=== PATIENT | male | born 1990 | race Caucasian/White ===

== ENCOUNTER 2022-06-27 13:19 | Emergency (ER) | payer BC, SELFPAY ==
--- NOTE | ~2022-06-27 | XR_ITS ---
EXAMINATION: XR CHEST CLINICAL INFORMATION: Chest pain. COMPARISON: None available. TECHNIQUE: Frontal view of the chest was obtained. FINDINGS: No significant abnormality is noted involving the heart, lungs, mediastinum, bony thorax or soft tissues. XR/XR chest 1V IMPRESSION: No acute cardiopulmonary process.
[2022-06-27 13:29] VITALS: BP 127/81; PULSE 70; RESP 16; TEMP 37.1; BMI 22.3
--- NOTE | 2022-06-27 13:31 | ECG_ITS ---
Test Reason : cp Blood Pressure : / mmHG Vent. Rate : 061 BPM Atrial Rate : 061 BPM P-R Int : 136 ms QRS Dur : 106 ms QT Int : 384 ms P-R-T Axes : 054 055 035 degrees QTc Int : 386 ms Normal sinus rhythm with sinus arrhythmia Normal ECG No previous ECGs available Referred By: Radha Higgins Electronically Signed By:TYLOR LANGSTON MD
--- NOTE | 2022-06-27 13:32 | ED.GENADULT ---
HPI - General Adult General Chief complaint: Chest Pain <RINKU Tolliver - Last Filed: 06/27/22 13:33> Stated complaint: chest pain/ palpitations <RINKU Tolliver - Last Filed: 06/27/22 13:33> Time Seen by Provider: 06/27/22 14:07 <RINKU Tolliver - Last Filed: 06/27/22 13:33> Source: patient <Bird Toscano MD - Last Filed: 06/27/22 16:41> Mode of arrival: ambulatory <Bird Toscano MD - Last Filed: 06/27/22 16:41> Limitations: no limitations <Bird Toscano MD - Last Filed: 06/27/22 16:41> History of Present Illness HPI narrative: Patient suffers from anxiety but does not have palpitations with his anxiety. last night he awoke with palpitations <Bird Toscano MD - Last Filed: 06/27/22 16:41> Onset (ago): minute(s) <Bird Toscano MD - Last Filed: 06/27/22 16:41> Severity: mild <Bird Toscano MD - Last Filed: 06/27/22 16:41> Pain Consistency: intermittent <Bird Toscano MD - Last Filed: 06/27/22 16:41> Related Data Allergies/adverse reactions: Allergies Allergy/AdvReac Type Severity Reaction Status Date / Time No Known Allergies Allergy Unverified 12/25/19 15:59 <RINKU Tolliver - Last Filed: 06/27/22 13:33> Review of Systems Review of Systems: Yes all other systems are reviewed and are negative <Bird Toscano MD - Last Filed: 06/27/22 16:41> Cardiovascular: Cardiovascular: Reports rapid heart rate <Bird Toscano MD - Last Filed: 06/27/22 16:41> [facility] Social History Social History: Social History Alcohol intake: current Alcohol intake frequency: 0-2 drinks per day Alcohol type: beer Smoked in Last 30 Days: No Use of substances other than those prescribed or required for medical reasons: No Advance Directives: No Advance Directives Information Provided: No <RINKU Tolliver - Last Filed: 06/27/22 13:33> Physical Exam ED Vital Signs: Vital Signs - 24 hr 06/27/22 13:29 06/27/22 14:02 Temperature 98.7 F 98.3 F Pulse Rate 70 54 Respiratory Rate 16 17 Blood Pressure 127/81 104/67 Pulse Oximetry 98 Oxygen Delivery Method Room Air Room Air BMI result Body Mass Index 22.3 <RINKU Tolliver - Last Filed: 06/27/22 13:33> Vital Signs - 24 hr 06/27/22 13:29 06/27/22 14:02 Temperature 98.7 F 98.3 F Pulse Rate 70 54 Respiratory Rate 16 17 Blood Pressure 127/81 104/67 Pulse Oximetry 98 Oxygen Delivery Method Room Air Room Air BMI result Body Mass Index 22.3 <Bird Toscano MD - Last Filed: 06/27/22 16:41> Const General: healthy appearing <Bird Toscano MD - Last Filed: 06/27/22 16:41> Nutritional Appearance: average body habitus <Bird Toscano MD - Last Filed: 06/27/22 16:41> Orientation/consciousness: oriented to person and patient oriented x3 <Bird Toscano MD - Last Filed: 06/27/22 16:41> Limitations: no limitations <Bird Toscano MD - Last Filed: 06/27/22 16:41> HENMT Head: Yes normal to inspection <Bird Toscano MD - Last Filed: 06/27/22 16:41> Ears: external ears normal <Bird Toscano MD - Last Filed: 06/27/22 16:41> General nose exam: Normal external nose present <Bird Toscano MD - Last Filed: 06/27/22 16:41> Mouth: Normal oral and palatal mucosa present and oropharynx normal <Bird Toscano MD - Last Filed: 06/27/22 16:41> Throat: Yes posterior oropharynx normal <Bird Toscano MD - Last Filed: 06/27/22 16:41> Eyes General: appearance normal, both eyes and all related structures <Bird Toscano MD - Last Filed: 06/27/22 16:41> Neck Neck: Yes normal visual inspection <Bird Toscano MD - Last Filed: 06/27/22 16:41> Chest Chest palpation & inspection: normal inspection of the chest <Bird Toscano MD - Last Filed: 06/27/22 16:41> Resp Auscultation: clear to auscultation bilaterally <Bird Toscano MD - Last Filed: 06/27/22 16:41> Cardio Jugular venous distension: no JVD <Bird Toscano MD - Last Filed: 06/27/22 16:41> Rate: regular rate <Bird Toscano MD - Last Filed: 06/27/22 16:41> Rhythm: regular rhythm <Bird Toscano MD - Last Filed: 06/27/22 16:41> Heart sounds: S1 normal heart sound present and S2 normal heart sound present <iBrd Toscano MD - Last Filed: 06/27/22 16:41> GI Inspection: Yes normal to inspection <Bird Toscano MD - Last Filed: 06/27/22 16:41> Palpation (GI): Soft to palpation, nontender and No hepatosplenomegaly present <Bird Toscano MD - Last Filed: 06/27/22 16:41> Auscultation: normal bowel sounds <Bird Toscano MD - Last Filed: 06/27/22 16:41> General: Yes no CVA tenderness <Bird Toscano MD - Last Filed: 06/27/22 16:41> Back/Spine/Pelvis Back: no CVA tenderness <Bird Toscano MD - Last Filed: 06/27/22 16:41> Skin General skin exam: no rashes or lesions noted <Bird Toscano MD - Last Filed: 06/27/22 16:41> Neuro General: oriented to person and patient oriented x3 <Bird Toscano MD - Last Filed: 06/27/22 16:41> Cranial nerves: Yes CN's II-XII intact bilaterally <Bird Toscano MD - Last Filed: 06/27/22 16:41> Motor exam (neuro): 5/5 motor strength present throughout <Bird Toscano MD - Last Filed: 06/27/22 16:41> Extrem General: Yes normal to inspection <Bird Toscano MD - Last Filed: 06/27/22 16:41> Psych Appearance: grossly normal <Bird Toscano MD - Last Filed: 06/27/22 16:41> Course Course Course Narrative: This is an RME: Additional HPI, ROS, PE not included below will be deferred to primary provider. 31-year-old male without significant medical history presents for evaluation of substernal chest pain that fluctuates in intensity, described as pressure, started suddenly at 01:00, will come from sleep, with associated palpitations. No shortness of breath. Tells me he fell anxious when the started not feeling anxious now however. This has happened to him before however has subsided. Denies URI symptoms, fevers, chills, shortness of breath. Physical exam benign. Plan labs, EKG, troponin, chest x-ray and viral testing <RINKU Tolliver - Last Filed: 06/27/22 13:33> Reevaluation(s) Reevaluation #1: Patient resting comfortably no evidence of tachycardia, cardiac ischemia, normal TSH. Palpitation and anxiety considered <Bird Toscano MD - Last Filed: 06/27/22 16:41> Time: 16:10 <Bird Toscano MD - Last Filed: 06/27/22 16:41> Medical Decision Making Differential Diagnosis Differential Diagnoses: The differential diagnosis associated with the presentation includes (arrythmia, tachycardia, cardiac ischemia, hyperthyroidism all considered) <Bird Toscano MD - Last Filed: 06/27/22 16:41> Lab Data MDM Lab Attestation statement: I reviewed the patient's lab results. <Bird Toscano MD - Last Filed: 06/27/22 16:41> Result Diagrams: 06/27/22 13:54 06/27/22 13:54 <RINKU Tolliver - Last Filed: 06/27/22 13:33> Labs: Lab Results 06/27/22 06/27/22 06/27/22 Range/Units 13:54 13:54 13:54 WBC 7.4 (4.8-10.8) X10*3/uL RBC 5.46 (4.60-5.80) X10*6/uL Hgb 16.4 (14.0-18.0) g/dl Hct 46.5 (42.0-52.0) % MCV 85.2 (80.0-98.0) fL MCH 30.0 (27.0-33.0) pg MCHC 35.3 (31.0-36.0) g/dl RDW 12.5 (11.0-16.0) % Plt Count 276 (160-400) X10*3/uL MPV 9.3 L (9.4-12.4) fL Immature Gran % (Auto) 0.3 (0.0-0.4) % Neut % (Auto) 47.4 (45-73) % Lymph % (Auto) 42.8 H (20-40) % [place] % (Auto) 4.9 (2-11) % Eos % (Auto) 3.9 (0-4) % Baso % (Auto) 0.7 (0-2) % Lymph # (Auto) 3.2 (1.2-4.9) X10*3/uL [place] # (Auto) 0.4 (0.1-1.2) X10*3/uL Eos # (Auto) 0.3 (0.0-0.4) X10*3/uL Baso # (Auto) 0.1 (0.0-0.2) X10*3/uL Abs Immat Gran (auto) 0.02 (0.00-0.03) X10*3/uL Absolute Neuts (auto) 3.5 (2.0-8.3) x10*3/uL Absolute Nucleated RBC 0.000 (0.0-0.012) X10*3/uL Nucleated RBC % (auto) 0.0 (0.0-0.2) /100WBC Sodium 141 (135-145) mmol/L Potassium 3.9 (3.3-5.1) mmol/L Chloride 105 (96-108) mmol/L Carbon Dioxide 28 (22-29) mmol/L Anion Gap 12 (12-20) BUN 13 (9-16) mg/dL Creatinine 0.83 (0.5-1.4) mg/dL Estim Creat Clear Calc 123.9 Estimated GFR > 60 Random Glucose 95 (60-115) mg/dL Calcium 9.3 (8.4-10.2) mg/dL Magnesium 2.1 (1.6-2.6) mg/dL Total Bilirubin 1.0 (0.0-1.0) mg/dL AST 21 (5-37) U/L ALT 28 (0-40) U/L Alkaline Phosphatase 66 (39-117) U/L Troponin I High Sens (<3.5-35.0) ng/L B-Natriuretic Peptide < 10 (<100) pg/mL Total Protein 7.8 (6.5-8.0) g/dL Albumin 4.8 (3.5-5.0) g/dL TSH 2.30 (0.32-4.0) uIU/mL Urine Color Urine Appearance Urine pH (5.0-9.0) Ur Specific [place] (1.005-1.025) Urine Protein (Neg-Trace) mg/dL Urine Glucose (UA) (Negative) mg/dL Urine Ketones (Negative) mg/dL Urine Blood (Negative) Urine Nitrite (Negative) Ur Leukocyte Esterase (Negative) Urine RBC (0-2) /HPF Urine WBC (0-5) /HPF Ur Squamous Epith Cells (0-2) /HPF Urine Bacteria (None Seen) Hyaline Casts (0-2) /LPF COVID-19 (ASH) (Negative) COVID-19 Clin Com 06/27/22 06/27/22 06/27/22 Range/Units 13:54 13:54 15:46 WBC (4.8-10.8) X10*3/uL RBC (4.60-5.80) X10*6/uL Hgb (14.0-18.0) g/dl Hct (42.0-52.0) % MCV (80.0-98.0) fL MCH (27.0-33.0) pg MCHC (31.0-36.0) g/dl RDW (11.0-16.0) % Plt Count (160-400) X10*3/uL MPV (9.4-12.4) fL Immature Gran % (Auto) (0.0-0.4) % Neut % (Auto) (45-73) % Lymph % (Auto) (20-40) % [place] % (Auto) (2-11) % Eos % (Auto) (0-4) % Baso % (Auto) (0-2) % Lymph # (Auto) (1.2-4.9) X10*3/uL [place] # (Auto) (0.1-1.2) X10*3/uL Eos # (Auto) (0.0-0.4) X10*3/uL Baso # (Auto) (0.0-0.2) X10*3/uL Abs Immat Gran (auto) (0.00-0.03) X10*3/uL Absolute Neuts (auto) (2.0-8.3) x10*3/uL Absolute Nucleated RBC (0.0-0.012) X10*3/uL Nucleated RBC % (auto) (0.0-0.2) /100WBC Sodium (135-145) mmol/L Potassium (3.3-5.1) mmol/L Chloride (96-108) mmol/L Carbon Dioxide (22-29) mmol/L Anion Gap (12-20) BUN (9-16) mg/dL Creatinine (0.5-1.4) mg/dL Estim Creat Clear Calc Estimated GFR Random Glucose (60-115) mg/dL Calcium (8.4-10.2) mg/dL Magnesium (1.6-2.6) mg/dL Total Bilirubin (0.0-1.0) mg/dL AST (5-37) U/L ALT (0-40) U/L Alkaline Phosphatase (39-117) U/L Troponin I High Sens < 3.5 (<3.5-35.0) ng/L B-Natriuretic Peptide (<100) pg/mL Total Protein (6.5-8.0) g/dL Albumin (3.5-5.0) g/dL TSH (0.32-4.0) uIU/mL Urine Color Yellow Urine Appearance Clear Urine pH 8.0 (5.0-9.0) Ur Specific [place] 1.025 (1.005-1.025) Urine Protein 30 (1+) H (Neg-Trace) mg/dL Urine Glucose (UA) Negative (Negative) mg/dL Urine Ketones Trace (Negative) mg/dL Urine Blood Negative (Negative) Urine Nitrite Negative (Negative) Ur Leukocyte Esterase Negative (Negative) Urine RBC 3-5 H (0-2) /HPF Urine WBC 0-5 (0-5) /HPF Ur Squamous Epith Cells 0-2 (0-2) /HPF Urine Bacteria None Seen (None Seen) Hyaline Casts 0-2 (0-2) /LPF COVID-19 (ASH) Negative (Negative) COVID-19 Clin Com See Note <RINKU Tolliver - Last Filed: 06/27/22 13:33> Lab Results 06/27/22 06/27/22 06/27/22 Range/Units 13:54 13:54 13:54 WBC 7.4 (4.8-10.8) X10*3/uL RBC 5.46 (4.60-5.80) X10*6/uL Hgb 16.4 (14.0-18.0) g/dl Hct 46.5 (42.0-52.0) % MCV 85.2 (80.0-98.0) fL MCH 30.0 (27.0-33.0) pg MCHC 35.3 (31.0-36.0) g/dl RDW 12.5 (11.0-16.0) % Plt Count 276 (160-400) X10*3/uL MPV 9.3 L (9.4-12.4) fL Immature Gran % (Auto) 0.3 (0.0-0.4) % Neut % (Auto) 47.4 (45-73) % Lymph % (Auto) 42.8 H (20-40) % [place] % (Auto) 4.9 (2-11) % Eos % (Auto) 3.9 (0-4) % Baso % (Auto) 0.7 (0-2) % Lymph # (Auto) 3.2 (1.2-4.9) X10*3/uL [place] # (Auto) 0.4 (0.1-1.2) X10*3/uL Eos # (Auto) 0.3 (0.0-0.4) X10*3/uL Baso # (Auto) 0.1 (0.0-0.2) X10*3/uL Abs Immat Gran (auto) 0.02 (0.00-0.03) X10*3/uL Absolute Neuts (auto) 3.5 (2.0-8.3) x10*3/uL Absolute Nucleated RBC 0.000 (0.0-0.012) X10*3/uL Nucleated RBC % (auto) 0.0 (0.0-0.2) /100WBC Sodium 141 (135-145) mmol/L Potassium 3.9 (3.3-5.1) mmol/L Chloride 105 (96-108) mmol/L Carbon Dioxide 28 (22-29) mmol/L Anion Gap 12 (12-20) BUN 13 (9-16) mg/dL Creatinine 0.83 (0.5-1.4) mg/dL Estim Creat Clear Calc 123.9 Estimated GFR > 60 Random Glucose 95 (60-115) mg/dL Calcium 9.3 (8.4-10.2) mg/dL Magnesium 2.1 (1.6-2.6) mg/dL Total Bilirubin 1.0 (0.0-1.0) mg/dL AST 21 (5-37) U/L ALT 28 (0-40) U/L Alkaline Phosphatase 66 (39-117) U/L Troponin I High Sens (<3.5-35.0) ng/L B-Natriuretic Peptide < 10 (<100) pg/mL Total Protein 7.8 (6.5-8.0) g/dL Albumin 4.8 (3.5-5.0) g/dL TSH 2.30 (0.32-4.0) uIU/mL Urine Color Urine Appearance Urine pH (5.0-9.0) Ur Specific [place] (1.005-1.025) Urine Protein (Neg-Trace) mg/dL Urine Glucose (UA) (Negative) mg/dL Urine Ketones (Negative) mg/dL Urine Blood (Negative) Urine Nitrite (Negative) Ur Leukocyte Esterase (Negative) Urine RBC (0-2) /HPF Urine WBC (0-5) /HPF Ur Squamous Epith Cells (0-2) /HPF Urine Bacteria (None Seen) Hyaline Casts (0-2) /LPF COVID-19 (ASH) (Negative) COVID-19 Clin Com 06/27/22 06/27/22 06/27/22 Range/Units 13:54 13:54 15:46 WBC (4.8-10.8) X10*3/uL RBC (4.60-5.80) X10*6/uL Hgb (14.0-18.0) g/dl Hct (42.0-52.0) % MCV (80.0-98.0) fL MCH (27.0-33.0) pg MCHC (31.0-36.0) g/dl RDW (11.0-16.0) % Plt Count (160-400) X10*3/uL MPV (9.4-12.4) fL Immature Gran % (Auto) (0.0-0.4) % Neut % (Auto) (45-73) % Lymph % (Auto) (20-40) % [place] % (Auto) (2-11) % Eos % (Auto) (0-4) % Baso % (Auto) (0-2) % Lymph # (Auto) (1.2-4.9) X10*3/uL [place] # (Auto) (0.1-1.2) X10*3/uL Eos # (Auto) (0.0-0.4) X10*3/uL Baso # (Auto) (0.0-0.2) X10*3/uL Abs Immat Gran (auto) (0.00-0.03) X10*3/uL Absolute Neuts (auto) (2.0-8.3) x10*3/uL Absolute Nucleated RBC (0.0-0.012) X10*3/uL Nucleated RBC % (auto) (0.0-0.2) /100WBC Sodium (135-145) mmol/L Potassium (3.3-5.1) mmol/L Chloride (96-108) mmol/L Carbon Dioxide (22-29) mmol/L Anion Gap (12-20) BUN (9-16) mg/dL Creatinine (0.5-1.4) mg/dL Estim Creat Clear Calc Estimated GFR Random Glucose (60-115) mg/dL Calcium (8.4-10.2) mg/dL Magnesium (1.6-2.6) mg/dL Total Bilirubin (0.0-1.0) mg/dL AST (5-37) U/L ALT (0-40) U/L Alkaline Phosphatase (39-117) U/L Troponin I High Sens < 3.5 (<3.5-35.0) ng/L B-Natriuretic Peptide (<100) pg/mL Total Protein (6.5-8.0) g/dL Albumin (3.5-5.0) g/dL TSH (0.32-4.0) uIU/mL Urine Color Yellow Urine Appearance Clear Urine pH 8.0 (5.0-9.0) Ur Specific [place] 1.025 (1.005-1.025) Urine Protein 30 (1+) H (Neg-Trace) mg/dL Urine Glucose (UA) Negative (Negative) mg/dL Urine Ketones Trace (Negative) mg/dL Urine Blood Negative (Negative) Urine Nitrite Negative (Negative) Ur Leukocyte Esterase Negative (Negative) Urine RBC 3-5 H (0-2) /HPF Urine WBC 0-5 (0-5) /HPF Ur Squamous Epith Cells 0-2 (0-2) /HPF Urine Bacteria None Seen (None Seen) Hyaline Casts 0-2 (0-2) /LPF COVID-19 (ASH) Negative (Negative) COVID-19 Clin Com See Note <Bird Toscano MD - Last Filed: 06/27/22 16:41> Independent Interpretation I performed an independent interpretation of an: EKG (sinus 60, no st or twave changes) and Plain X-Ray (no infiltrate or ptx) <Bird Toscano MD - Last Filed: 06/27/22 16:41> Discharge Plan Discharge Clinical Impression: Atypical chest pain, Heart palpitations <RINKU Tolliver - Last Filed: 06/27/22 13:33> Patient Disposition: Home, Self-Care <RINKU Tolliver - Last Filed: 06/27/22 13:33> Instructions: Chest Pain (ED), Heart Palpitations (ED) <RINKU Tolliver - Last Filed: 06/27/22 13:33> Referrals: Physician,Unknown J [Primary Care Provider] - 5 days <RINKU Tolliver - Last Filed: 06/27/22 13:33>
[2022-06-27 14:01] LABS: MANUAL DIFF FLAG NO
[2022-06-27 14:02] VITALS: BP 104/67; PULSE 54; RESP 17; TEMP 36.8; O2SAT 98
[2022-06-27 14:03] LABS: Basophils Absolute Auto 0.1 X10*3/uL (0.0-0.2); Basophils Percent Auto 0.7 % (0-2); Eosinophils Absolute Auto 0.3 X10*3/uL (0.0-0.4); Eosinophils Percent Auto 3.9 % (0-4); Hematocrit 46.5 % (42.0-52.0); Hemoglobin 16.4 g/dl (14.0-18.0); Imm Gran Abs Auto 0.02 X10*3/uL (0.00-0.03); Imm Gran Pct Auto 0.3 % (0.0-0.4); Lymphocytes Absolute Auto 3.2 X10*3/uL (1.2-4.9); Lymphocytes Percent Auto 42.8 % (20-40); Mean Corpuscular HGB Conc 35.3 g/dl (31.0-36.0); Mean Corpuscular Volume 85.2 fL (80.0-98.0); Mean Platelet Volume 9.3 fL (9.4-12.4); Monocytes Absolute Auto 0.4 X10*3/uL (0.1-1.2); Monocytes Percent Auto 4.9 % (2-11); Neutrophils Absolute Auto 3.5 x10*3/uL (2.0-8.3); Neutrophils Percent Auto 47.4 % (45-73); Platelet Count 276 X10*3/uL (160-400); Red Blood Count 5.46 X10*6/uL (4.60-5.80); Red Cell Distribution Width 12.5 % (11.0-16.0); White Blood Count 7.4 X10*3/uL (4.8-10.8)
[2022-06-27 14:18] LABS: COVID-19 Test Negative (Negative); IDNOW Serial# 55D5AD1C
[2022-06-27 14:23] LABS: Alanine Aminotransferase 28 U/L (0-40); Albumin Level 4.8 g/dL (3.5-5.0); Alkaline Phosphatase 66 U/L (39-117); Anion Gap 12 (12-20); Aspartate Amino Transferase 21 U/L (5-37); Blood Urea Nitrogen 13 mg/dL (9-16); Calcium 9.3 mg/dL (8.4-10.2); Carbon Dioxide 28 mmol/L (22-29); Chloride 105 mmol/L (96-108); Creatinine Clr Calc Pharmacy 123.9; Estimated Glomerular Filt Rate > 60; Glucose Random 95 mg/dL (60-115); Magnesium 2.1 mg/dL (1.6-2.6); Potassium 3.9 mmol/L (3.3-5.1); Sodium 141 mmol/L (135-145); Total Protein 7.8 g/dL (6.5-8.0)
[2022-06-27 14:26] LABS: B Type Natriuretic Peptide < 10 pg/mL (<100)
[2022-06-27 14:32] LABS: Troponin-I High Sensitivity < 3.5 ng/L (<3.5-35.0)
[2022-06-27 14:46] VITALS: PULSE 62
[2022-06-27 15:52] LABS: Appearance Urine Clear; Color Urine Yellow; Glucose Urine UA Negative (Negative); Leukocyte Esterase Urine Negative (Negative); Nitrite Urine Negative (Negative); Specific Gravity - Urine 1.025 (1.005-1.025); UMIC TRIGGER UACC YES; Urine Blood Negative (Negative); Urine Ketones Trace mg/dL (Negative); Urine Protein 30 (1+) mg/dL (Neg-Trace)
[2022-06-27 15:54] LABS: Bacteria Urine None Seen (None Seen); Hyaline Casts Urine 0-2 /LPF (0-2); Squamous Epithelial Cell Urine 0-2 /HPF (0-2); WBC Urine 0-5 /HPF (0-5)
== END 2022-06-27 17:15 | disposition home or self-care (01) ==
PROVIDERS: Physician Assistant; Emergency Provider Emergency Medicine
DX: R07.89 Other chest pain (principal); R00.2 Palpitations; R06.02 Shortness of breath; Z20.822 Contact with and (suspected) exposure to COVID-19; Z20.828 Contact with and (suspected) exposure to other viral communicable diseases; Z79.899 Other long term (current) drug therapy
CPT/HCPCS: 36415; 71045; 80053; 81001; 83735; 83880; 84443; 84484; 85025; 87635; 93005; 99284; 99285